=== PATIENT | male | born 1985 | race Hispanic/Latino ===

== ENCOUNTER 2017-12-01 21:33 | Emergency (ER) | payer BC ==
[~2017-12-01] VITALS: Ht 175.3 cm; Wt 77.1 kg
[2017-12-01 21:50] LABS: BASOPHILS # (AUTO) 0.1 (0.0-0.1); BASOPHILS % 0.6 % (0.0-1.0); EOSINOPHILS # (AUTO) 0.1 (0.0-0.4); EOSINOPHILS % 0.8 % (0.0-6.0); HEMATOCRIT 45.7 % (38.2-49.6); HEMOGLOBIN 16.4 g/dL (14.0-18.0); LYMPHOCYTES # (AUTO) 3.4 (1.0-3.2); LYMPHOCYTES % 38.9 % (18.0-39.1); MEAN CORPUSCULAR HEMOGLOBIN 30.5 pg (28-32); MEAN CORPUSCULAR HGB CONC 35.9 g/dL (31-35); MEAN CORPUSCULAR VOLUME 84.9 fL (81-99); MONOCYTES # (AUTO) 0.6 (0.2-0.8); MONOCYTES % 7.1 % (4.4-11.3); NEUTROPHILS # (AUTO) 4.6 (2.1-6.9); NEUTROPHILS % 52.4 % (38.7-80.0); PLATELET COUNT 235 x10e3/uL (140-360); RED BLOOD COUNT 5.38 x10e6/uL (4.3-5.7)
[2017-12-01 22:08] LABS: ALANINE AMINOTRANSFERASE 22 IU/L (0-55); ALBUMIN 4.7 g/dL (3.5-5.0); ALBUMIN/GLOBULIN RATIO 1.5 (0.8-2.0); ALKALINE PHOSPHATASE 74 IU/L (40-150); ANION GAP 15.5 mmol/L (8-16); BLOOD UREA NITROGEN 11 mg/dL (7-26); BUN/CREATININE RATIO 12 (6-25); CALCIUM 9.7 mg/dL (8.4-10.2); CARBON DIOXIDE 25 mmol/L (22-29); CHLORIDE 104 mmol/L (98-107); CREATINE KINASE 109 IU/L (30-200); CREATININE, SERUM 0.89 mg/dL (0.72-1.25); EST GLOMERULAR FILTRATION RATE > 60 ML/MIN (60-); GLUCOSE 84 mg/dL (74-118); POTASSIUM 3.5 mmol/L (3.5-5.1); SODIUM 141 mmol/L (136-145)
[2017-12-01] MEDS ORDERED: PANTOPRAZOLE 40 MG 10ML VIAL IV STA (22:21)
--- NOTE | 2017-12-01 22:28 | Diagnostic Imaging Report ---
EXAM: CHEST SINGLE (PORTABLE), AP 1 view INDICATION: Chest pain COMPARISON: None FINDINGS: LINES/TUBES: None LUNGS: No consolidations or edema. PLEURA: No effusions or pneumothorax. HEART AND MEDIASTINUM: Normal size and contour. BONES AND SOFT TISSUES: No acute findings. IMPRESSION: No acute thoracic abnormality. Signed by: Dr. Jennie Mack M.D. on 12/01/2017 10:25 PM
[2017-12-01] MEDS ORDERED: PANTOPRAZOLE SO40 MG PO (22:47)
[2017-12-01 22:50] VITALS: BP 128/86
== END 2017-12-01 22:59 | disposition home or self-care (01) ==
LOC: ER 21:33
DX: R07.9 Chest pain, unspecified (principal); K21.9 Gastro-esophageal reflux disease without esophagitis; F41.9 Anxiety disorder, unspecified
CPT/HCPCS: 36415; 71045; 80053; 82550; 82553; 84484; 85025; 93005; 99284